=== PATIENT | female | born 1980 | race American Indian/Alaskan Native ===

== ENCOUNTER 2019-07-25 09:59 | Emergency (ER) | payer MEDICAID ==
[2019-07-25] MEDS ORDERED: SODIUM CHLORIDE 0.9% 1000 ML 1,000 ML IV ONE (10:33)
[2019-07-25] MEDS ORDERED: ONDANSETRON 4 MG/2 ML INJ IV ONE (10:33)
--- NOTE | 2019-07-25 10:37 | Emergency Department Report ---
HPI - General Chief Complaint: Nausea/Vomiting/Diarrhea Time Seen by Provider: 07/25/19 10:20 - HPI HPI: 39-year-old -[place] female presents to the emergency department with complaint of nausea, vomiting, diarrhea and some "gurgling" in the stomach since yesterday. The patient went and ate fast food at [employer] that she picked up yesterday morning around 10:30 AM. She says the food was cold at that time despite the fact that they just opened. She began having the symptoms a few hours after eating this food. She has a past medical history of hypertension, migraines and asthma. She has not been able to take her blood pressure medication or any other treatment secondary to the nausea and vomiting. No recent travel or sick contacts at home. She has a new primary care physician but cannot currently remember their name. ED Past Medical Hx - Past Medical History Hx Hypertension: Yes - Surgical History Hx Cholecystectomy: Yes Additional Surgical History: TUBAL LIG. CARPEL TUNNEL - Social History Smoking Status: Never Smoker Substance Use Type: None - Medications Home Medications: Home Medications Medication Instructions Recorded Confirmed Last Taken Type Ondansetron [Zofran Odt] 4 mg PO Q8HR PRN #15 tab.rapdis 07/25/19 Unknown Rx ED Review of Systems ROS: Stated complaint: POSS FOOD POISIONING Other details as noted in HPI Comment: All other systems reviewed and negative Constitutional: denies: chills, fever Respiratory: denies: cough, shortness of breath Cardiovascular: denies: chest pain, palpitations Gastrointestinal: abdominal pain, nausea, vomiting, diarrhea Genitourinary: denies: dysuria, frequency Musculoskeletal: denies: back pain, arthralgia Neurological: denies: headache, weakness Physical Exam - Physical Exam Vital Signs: Vital Signs 07/25/19 10:03 Temperature 98.1 F Pulse Rate 100 H Respiratory 18 Rate Blood Pressure 184/122 O2 Sat by Pulse 97 Oximetry Physical Exam: GENERAL: The patient is well-developed well-nourished. HENT: Normocephalic. Atraumatic. Patient has moist mucous membranes. EYES: Extraocular motions are intact. NECK: Supple. Trachea is midline. CHEST/LUNGS: Clear to auscultation. There is no respiratory distress noted. HEART/CARDIOVASCULAR: Regular. There is mild tachycardia. There is no murmur. ABDOMEN: Abdomen is soft, nontender. Patient has hyperactive bowel sounds. There is no abdominal distention. SKIN: Skin is warm and dry. NEURO: The patient is awake, alert, and oriented. The patient is cooperative. The patient has no focal neurologic deficits. Normal speech. MUSCULOSKELETAL: There is no tenderness or deformity. There is no limitation range of motion. There is no evidence of acute injury. ED Course Vital Signs 07/25/19 10:03 Temperature 98.1 F Pulse Rate 100 H Respiratory 18 Rate Blood Pressure 184/122 O2 Sat by Pulse 97 Oximetry ED Medical Decision Making - Lab Data Result diagrams: 07/25/19 10:36 07/25/19 10:36 - Radiology Data Radiology results: report reviewed Abdominal x-ray shows nonspecific nonobstructive bowel gas - Medical Decision Making This patient presents to the emergency department with some nausea, vomiting, diarrhea since eating fast food yesterday morning/afternoon. Vital signs stable throughout her ED course including being afebrile. Patient's labs have been unremarkable according CBC, metabolic panel, urinalysis and the patient is not . Abdominal x-ray shows nonspecific nonobstructive bowel gas. She was given a dose of Zofran with IV fluid resuscitation. Upon reevaluation she is feeling improved. She did have very mild hypokalemia that was replaced potassium chloride. The patient was able to pass an oral challenge. She appears safe for discharge home at this time. She's been given a prescription for Zofran ODT. She will follow up with a PCP and return to the ER with any worsening of her symptoms or any acute distress. - Differential Diagnosis food poisoning, colitis, gastritis, bowel obstruction Critical Care Time: No Critical care attestation.: If time is entered above; I have spent that time in minutes in the direct care of this critically ill patient, excluding procedure time. ED Disposition Clinical Impression: Dehydration Nausea & vomiting Qualifiers: Vomiting type: unspecified Vomiting Intractability: non-intractable Qualified Code(s): R11.2 - Nausea with vomiting, unspecified Diarrhea Qualifiers: Diarrhea type: unspecified type Qualified Code(s): R19.7 - Diarrhea, unspecified Disposition: DC-01 TO HOME OR SELFCARE Is pt being admited?: No Condition: Stable Instructions: Dehydration (ED), Acute Nausea and Vomiting (ED), Acute Diarrhea (ED), Food Poisoning (ED) Additional Instructions: Please follow-up with a primary care physician in the next few days. Take your blood pressure medications as prescribed. Increase your oral rehydration. Return to the emergency Department with any worsening of your symptoms, inability to stay hydrated, or with any acute distress. Prescriptions: Ondansetron [Zofran Odt] 4 mg PO Q8HR PRN #15 tab.rapdis PRN Reason: Nausea Referrals: PRIMARY CARE, [Primary Care Provider] - 2-3 Days Time of Disposition: 13:05
[2019-07-25 11:05] LABS: Basophils % (Auto) 0.4 % (0.0-1.8); Eosinophils % (Auto) 0.1 % (0.0-4.3); Hematocrit 39.2 % (30.3-42.9); Hemoglobin 13.5 gm/dl (10.1-14.3); Lymphocytes # (Auto) 1.2 K/mm3 (1.2-5.4); Lymphocytes % (Auto) 18.1 % (13.4-35.0); Mean Corpuscular HGB Conc 35 % (30-34); Mean Corpuscular Volume 88 fl (79-97); Monocytes # (Auto) 0.4 K/mm3 (0.0-0.8); Monocytes % (Auto) 5.6 % (0.0-7.3); Platelet Count 313 K/mm3 (140-440); Red Blood Count 4.44 M/mm3 (3.65-5.03)
[2019-07-25 11:13] LABS: Bilirubin,Urine NEG (Negative); Blood,Urine NEG (Negative); Color,Urine Yellow (Yellow); Mucus,Urine FEW /HPF
[2019-07-25 11:23] LABS: Alanine Aminotransferase 17 units/L (7-56); Albumin 4.2 g/dL (3.9-5); BUN/Creatinine Ratio 18; Blood Urea Nitrogen 9 mg/dL (7-17); Calcium 8.8 mg/dL (8.4-10.2); Hemolysis Index 5
[2019-07-25] MEDS ORDERED: POTASSIUM CHLORIDE ER 20 MEQ TAB PO ONE (11:31)
--- NOTE | 2019-07-25 12:23 | XRay Report ---
ABDOMEN 2 VIEW(S) INDICATION / CLINICAL INFORMATION: Abd pain. COMPARISON: None available. FINDINGS: TUBES / LINES: None. BOWEL GAS PATTERN: No significant abnormality. FREE AIR / EXTRALUMINAL GAS: None seen. ADDITIONAL FINDINGS: Intrauterine device in bilateral tubal ligation clips are noted in the pelvis. IMPRESSION: No significant abnormality. Signer Name: Tigre Davis Jr, MD Signed: 07/25/2019 12:18 PM Workstation Name: [id number]
[2019-07-25 13:03] VITALS: BP 162/99
== END 2019-07-25 13:16 | disposition home or self-care (01) ==
LOC: ED 09:59
DX: E86.0 Dehydration (principal); R19.7 Diarrhea, unspecified; I10 Essential (primary) hypertension
CPT/HCPCS: 36415; 74019; 80053; 81001; 83690; 84703; 85025; 96361; 96374; 96375; 99284; J2405; J7030

== ENCOUNTER 2020-01-27 12:46 | Outpatient (CLI) | payer OTHER ==
--- NOTE | 2020-01-27 14:29 | Ultrasound Report ---
ULTRASOUND-GUIDED CORE NEEDLE BIOPSY RIGHT BREAST WITH CLIP PLACEMENT INDICATION: 01/06/2020 FINDINGS: Informed consent was obtained. The mass within the right breast at the 10:30 position, 5 cm from the nipple, was identified with ultrasound. The overlying skin was cleansed with chloro prep and local an esthesia was obtained with a 1% lidocaine solution. Under ultrasound guidance a 14-gauge spring loade d core biopsy needle was advanced to the lesion. A total of 4 core samples were obtained. A biopsy ma rker was placed to felicita the site of the biopsy. Specimen samples were placed in formalin and sent to pathology for analysis. Patient tolerated the procedure well and no immediate competition was identified. A post procedure ma mmogram demonstrates accurate placement of the biopsy marker. IMPRESSION: Technically successful ultrasound guided biopsy of right breast mass at the 10:30 position with accur ate placement of a biopsy marker. Signer Name: Adarsh Lam MD Signed: 01/27/2020 2:24 PM Workstation Name: [id number]
--- NOTE | 2020-01-27 14:31 | Mammography Report ---
RIGHT DIAGNOSTIC MAMMOGRAM INDICATION: Status post right breast biopsy, post procedure mammogram COMPARISON: 01/06/2020. FINDINGS: Right CC and ML projections were obtained. There is a biopsy marker in the right upper outer breast a t the site of recently biopsied 10:30 position mass. IMPRESSION: Postprocedure mammograms demonstrate accurate biopsy marker location at the site of right breast 10:3 0 position mass. BI-RADS Category 4: Suspicious for Malignancy. Signer Name: Adarsh Lam MD Signed: 01/27/2020 2:27 PM Workstation Name: [id number]
== END 2020-01-27 12:47 | disposition home or self-care (01) ==
LOC: SPVWC 12:46
PROVIDERS: ATTEND Family Medicine
DX: N63.11 Unspecified lump in the right breast, upper outer quadrant (principal); D24.1 Benign neoplasm of right breast; I10 Essential (primary) hypertension; Z90.49 Acquired absence of other specified parts of digestive tract; Z79.899 Other long term (current) drug therapy
CPT/HCPCS: 88305

== ENCOUNTER 2020-02-04 12:38 | Outpatient (CLI) | payer OTHER ==
--- NOTE | 2020-02-04 14:58 | Ultrasound Report ---
ULTRASOUND-GUIDED CORE NEEDLE BIOPSY Left BREAST WITH CLIP PLACEMENT INDICATION: Left breast lesion at the 11:00 position. COMPARISON: 01/06/2020. FINDINGS: Informed consent was obtained. The lesion within the left breast at the 11:00 position was identified with ultrasound. The finding was very faint and is certainly not masslike. This may represent a smal l area of shadowing or Eric's ligament.. The overlying skin was cleansed with chloro prep and local anesthesia was obtained with a 1% lidocaine solution. Under ultrasound guidance a 14-gauge A[employer]ee core biopsy needle was advanced to the lesion. A total of 5 core samples were obtained. A biopsy marker was placed to felicita the site of the biopsy. Specimen samples were placed in formalin and sent to pathology for analysis. Patient tolerated the procedure well and no immediate complications were identified. Subsequent post procedure mammogram demonstrates the biopsy clip slightly anterior to the initial mammographic findin g, however it is felt that the sonographic findings seen on 01/06/2020 exam was appropriately biopsy. IMPRESSION: Technically successful ultrasound guided biopsy of left breast lesion at the 11:00 position with plac ement of a U shaped biopsy marker located slightly anterior to the mammographic finding. An addendum will be added to this report at a later date with the pathology results. Signer Name: Adarsh Lam MD Signed: 02/04/2020 2:53 PM Workstation Name: [id number]
--- NOTE | 2020-02-04 15:01 | Mammography Report ---
LEFT DIAGNOSTIC MAMMOGRAM INDICATION: Status post left 11:00 biopsy. COMPARISON: 01/06/2020, ultrasound performed earlier the same day. FINDINGS: U shaped biopsy marker is noted in the left anterior breast at the 11:00 position. This wou ld correspond with the expected location given the position of the biopsied finding sonographically. It is slightly anterior to the questionable mammographic finding which was initially identified, shields cari it is felt that the sonographic finding seen on the prior ultrasound was appropriately biopsy. IMPRESSION: Successful placement of a U-shaped biopsy marker in the left breast at the 11:00 position. Follow up recommendation: No recall. Postbiopsy imaging Signer Name: Adarsh Lam MD Signed: 02/04/2020 2:56 PM Workstation Name: [id number]
== END 2020-02-04 12:39 | disposition home or self-care (01) ==
LOC: SPVWC 12:38
PROVIDERS: ATTEND Family Medicine
DX: N63.22 Unspecified lump in the left breast, upper inner quadrant (principal); N64.89 Other specified disorders of breast; I10 Essential (primary) hypertension; Z90.49 Acquired absence of other specified parts of digestive tract; Z79.899 Other long term (current) drug therapy
CPT/HCPCS: 88305

== ENCOUNTER 2021-05-19 08:53 | Outpatient (CLI) | payer OTHER ==
--- NOTE | 2021-05-19 09:52 | Mammography Report ---
DIGITAL DIAGNOSTIC MAMMOGRAM WITH CAD CONVENTIONAL, 05/19/2021 CLINICAL INFORMATION / INDICATION: Nipple discharge, bilateral BREAST LUMP N63.0 TECHNIQUE: Digital bilateral mammographic imaging was performed. This examination was interpreted with the benefit of Computer-aided Detection analysis. COMPARISON: 01/06/2020 FINDINGS: Breast Density: The breasts are heterogeneously dense, which may obscure small masses. No dominant mass, suspicious calcifications or architectural distortion in either breast. Postbiopsy changes noted to the left upper inner breast. Postbiopsy changes noted to the right upper outer breast. IMPRESSION: No mammographic evidence of malignancy. Follow up recommendation: Routine yearly BI-RADS Category 2: Benign. A "normal" or negative report should not discourage follow up or biopsy of a clinically significant f inding. A written summary of these findings will be mailed to the patient. The patient will be entered into a mammography reporting system which will generate a reminder letter for the patient's next appointmen t at the appropriate interval. According to the [employer], yearly mammograms are recommended starting at age 40 and continuing as long as a woman is in good health. Breast MRI is recommended for women with an mora roximately 20-25% or greater lifetime risk of breast cancer, including women with a strong family his tory of breast or ovarian cancer and women who have been treated for Hodgkin's disease. Signer Name: Oscar Jin DO Signed: 05/19/2021 9:48 AM Workstation Name: [email or web address]
== END 2021-05-19 08:54 | disposition home or self-care (01) ==
LOC: SPVWC 08:53
DX: N63.0 Unspecified lump in unspecified breast (principal); N64.89 Other specified disorders of breast
CPT/HCPCS: 77066

== ENCOUNTER 2022-05-11 09:29 | Outpatient (CLI) | payer OTHER ==
--- NOTE | 2022-05-12 09:43 | Mammography Report ---
BILATERAL DIGITAL DIAGNOSTIC MAMMOGRAM CONVENTIONAL, 05/12/2022 BILATERAL LIMITED BREAST ULTRASOUND CLINICAL INFORMATION / INDICATION: Patient presents for evaluation of an area of palpable concern in the right breast. This area has been previously biopsied. TECHNIQUE: Digital bilateral mammographic imaging was performed. Spot compression views were obtained . Limited ultrasound was performed. COMPARISON: Prior mammogram 05/19/2021, 02/04/2020, 01/27/2020, and 01/06/2020. Prior breast ultrasounds and 01/06/2020 FINDINGS: Breast Density: The breasts are heterogeneously dense, which may obscure small masses. MAMMOGRAPHIC FINDINGS: There is a stable focal asymmetry with associated biopsy clip in the upper out er quadrant of the right breast, middle depth. This corresponds with the site of reported palpable co ncern. There is also a stable biopsy clip in the upper inner quadrant of the left breast. There is an 8 mm nodular density seen in the anterior subareolar position of the left breast. A questioned asymm etry in the superior left breast seen on MLO view is less conspicuous on spot compression views, sugg estive of overlapping fibroglandular tissue. Targeted ultrasound was performed for confirmation. ULTRASOUND FINDINGS: Targeted ultrasound evaluation was performed of the area of interest. Right breast: Targeted ultrasound was performed of the area of palpable concern in the upper outer qu adrant of the right breast. There is a benign cluster of cysts in the 12:00 position located 2 cm fro m nipple, measuring up to 1.1 x 0.3 x 1.0 cm. Redemonstration of an oval circumscribed hypoechoic mas s in the 11:00 position located 4 cm from nipple, currently measuring up to 1.6 x 0.7 x 1.0 cm, previ ously 1.4 x 0.6 x 1.3 cm. This contains the biopsy clip, compatible with prior benign biopsy site. Left breast: Corresponding with the nodular density seen on mammogram, there is a 10 mm benign cyst s een in the 12:00 subareolar left breast. There is a benign intramammary lymph node seen in the 2:00 p osition of the left breast located 7 cm from nipple, measuring up to 8 mm. Mild benign duct ectasia i s seen in the subareolar left breast. There is no sonographic abnormality to correspond with the asym metry questioned on mammogram, confirming that this represents tissue overlap. IMPRESSION: 1. There is a stable previously biopsied benign mass seen at the site of palpable concern in the righ t breast. Mild benign fibrocystic change is also seen in both breasts. No suspicious mammographic or sonographic abnormality identified. Follow up recommendation: Routine yearly screening mammogram. BI-RADS Category 2: BENIGN. A "normal" or negative report should not discourage follow up or biopsy of a clinically significant f inding. A written summary of these findings will be mailed to the patient. The patient will be entered into a mammography reporting system which will generate a reminder letter for the patient's next appointmen t at the appropriate interval. According to the [employer], yearly mammograms are recommended starting at age 40 and continuing as long as a woman is in good health. Breast MRI is recommended for women with an mora roximately 20-25% or greater lifetime risk of breast cancer, including women with a strong family his tory of breast or ovarian cancer and women who have been treated for Hodgkin's disease. Signer Name: Eva Downs MD Signed: 05/12/2022 9:39 AM Workstation Name: [email or web address]
== END 2022-05-11 09:30 | disposition home or self-care (01) ==
LOC: SPVWC 09:29
PROVIDERS: ATTEND Family Medicine
DX: N60.01 Solitary cyst of right breast (principal); N63.11 Unspecified lump in the right breast, upper outer quadrant; N64.89 Other specified disorders of breast